=== PATIENT | male | born 1955 | race Caucasian/White ===

== ENCOUNTER 2020-09-09 08:19 | Day surgery (SDC) | payer BC ==
[~2020-09-09 08:19] MED LIST: Bupivacaine 0.5% 50 ML MDV ONE; Dexamethasone 4 MG/ML SDV ONE; Glycopyrrolate 0.2 MG/ML 5 ML MDV ONE; Lidocaine 1% with EPINEPHrine 1:100,000 50 ML MDV ONE; Neostigmine Methylsulfate 1 MG/ML 5 ML Syringe ONE; Ondansetron 4 MG/2 ML SDV ONE; Propofol 200 MG/20 ML SDV ONE; Rocuronium 50 MG/5 ML Vial ONE; Succinylcholine 200 MG/10 ML MDV ONE; fentaNYL 250 MCG/5 ML SDV ONE
[2020-09-09] MEDS ORDERED: Sodium Chloride 0.9% 1,000 ML IV SCH (09:00)
[2020-09-09] MEDS ORDERED: ceFAZolin 2 GM in Premix Bag 1 BAG IV ONE (09:45)
[2020-09-09] MEDS ORDERED: Benzocaine/Cetylpyridinium/Menthol Lozenge MUCMEM PRN (09:53)
[2020-09-09] MEDS ORDERED: Zolpidem 5 MG Tab PO PRN (09:53)
[2020-09-09] MEDS ORDERED: hydrOXYzine HCL 100 MG/2 ML SDV IM PRN (09:53)
[2020-09-09] MEDS ORDERED: Acetaminophen/HYDROcodone 325-5 MG Tab PO PRN ×2 (09:53)
[2020-09-09] MEDS ORDERED: fentaNYL 100 MCG/2 ML SDV IVPUSH PRN (09:53)
[2020-09-09] MEDS ORDERED: Docusate Sodium 100 MG Cap PO PRN (09:53)
[2020-09-09] MEDS ORDERED: metroNIDAZOLE/Normal Saline 500 MG in Premix Bag 1 BAG IV ONE (10:15)
[2020-09-09] MEDS ORDERED: fentaNYL 250 MCG/5 ML SDV ONE (10:20)
[2020-09-09] MEDS ORDERED: Ketorolac 60 MG/2 ML SDV ONE (10:56)
[2020-09-09] MEDS ORDERED: Acetaminophen/HYDROcodone 325-5 MG Tab PO ONE (11:45)
[2020-09-09] MEDS ORDERED: Ondansetron 4 MG/2 ML SDV IVPUSH ONE (12:55)
[2020-09-09] MEDS ORDERED: Scopolamine 1.5 MG Transdermal Patch TOP SCH (12:55)
--- NOTE | 2020-09-09 13:30 | OR ---
DATE OF PROCEDURE: 09/09/2020 SURGEON: Dada Hanley MD PROCEDURES: 1. Bilateral transversus abdominis plane blocks. 2. Bilateral rectus sheath blocks. COMPLICATIONS: None. CLIENT SERVICE SUPERVISOR: None. RISKS: Risks, benefits, alternatives, and limitations including but not limited to infection, bleeding, and injury to abdominal structures were explained to the patient who wished to proceed. PROCEDURE IN DETAIL: The patient was placed in supine position. The left transversus plane was identified first. This was identified using a 13 megahertz ultrasound probe. Needle was introduced and advanced under direct visualization. 20% solution was then injected. This was then repeated on the right side. The bilateral rectus sheaths were injected under direct visualization. 20% solution was injected in all these 4 places respectively. At no point was the needle blindly advanced during any of these 4 injection sites. The patient tolerated the procedure well. Dada Hanley MD /[id number]
--- NOTE | 2020-09-09 16:46 | OR ---
DATE OF PROCEDURE: 09/09/2020 SURGEON: Dada Hanley MD PROCEDURE: Bilateral total extraperitoneal hernia repair with mesh. FINDINGS: 1. Large indirect inguinal hernia, left side. 2. Small direct hernia, right side. COMPLICATIONS: None. INFORMATION AND DATA ARCHITECT ANALYST: None. ANESTHESIA: MAC. RISKS: Risks, benefits, alternatives, and limitations including but not limited to infection, bleeding, injury to abdominal structures, sterility, blood vessel injury resulting in testicular loss, the possibility of open surgery, and other risks not listed here were explained to the patient. They wished to proceed. PROCEDURE IN DETAIL: With patient in supine position, an infraumbilical vertical incision was made approximately 1 cm in size. This was carried down with PlasmaBlade to the external oblique aponeurosis, which was also opened with PlasmaBlade. The rectus muscles on the right were then spread, and a plane was developed between the rectus muscle and the peritoneum. This was opened via a Pean. The dilating double-sided balloon was introduced, dilated, and held for 1 minute. The balloon was then removed, and the secondary balloon was insufflated. The preperitoneal space was insufflated. Dissection commenced on the left side in the standard lateral to medial technique with identification of the epigastric artery, its cord structures, and pubic symphysis with continued re-orientation to these aforementioned structures. This dissection then continued with the respect to the peritoneum, which was identified and freed. There was no cord lipoma. The peritoneum was completely deflected into the space. Attention was turned to the right side then in same manner, same fashion and technique, in the same sequence, and using the same equipment. Also with continued orientation. During this entire procedure, the cord structures were identified and not interacted with in any way. At no time was the "triangle of doom" nor the "triangle of pain" entered. Two pieces of mesh were then cut to shape, inserted, and unfolded into place. These overlapped the pubic symphysis. These were placed in the classic higher position. These were not tacked into place. These were then unfolded. They were held in place as the pressure was dropped. The fascia was then closed with #1 Vicryl in interrupted fashion. Subcutaneous tissues were closed with 3-0 Vicryl and 4-0 Vicryl. The patient tolerated the procedure well. Dada Hanley MD /[id number]
== END 2020-09-09 14:20 | disposition home or self-care (01) ==
LOC: JP.SDS 08:19
PROVIDERS: ATTEND Surgery
DX: K40.20 Bilateral inguinal hernia, without obstruction or gangrene, not specified as recurrent (principal); Z88.1 Allergy status to other antibiotic agents
CPT/HCPCS: A9270-GY; C1781; J0171; J0330; J0690; J1100; J1885; J2405; J2704; J2710; J2795; J3010; J3410; J3490; J7030

== ENCOUNTER 2022-05-02 18:21 | Emergency (ER) | payer BC ==
[2022-05-02 21:29] LABS: ESTIMATED GFR 95 mL/min (>60); TROPONIN I HIGH SENSITIVITY 8.4 pg/mL (<=60.3)
== END 2022-05-02 22:05 | disposition home or self-care (01) ==
LOC: JP.ED 18:21
DX: R07.89 Other chest pain (principal); R06.02 Shortness of breath; Z88.1 Allergy status to other antibiotic agents; Z91.018 Allergy to other foods
CPT/HCPCS: 36415; 71046; 80053; 84484; 85025; 85379; 93005; 93010; 99284; 99285